=== PATIENT | male | born 1970 | race Caucasian/White ===

== ENCOUNTER → 2018-11-11 | Outpatient (CLI) | payer BC ==
[~2018-11-11] MED LIST: AMLO-150 PO; ATOR20TA37 PO; HYDR25TA6 PO; OMEP-110 PO; TRAM50TA2 PO
[2018-11-11 16:05] LABS: BASOPHILS # (AUTO) 0.03 x10^3/uL (0-0.1); BASOPHILS % (AUTO) 0 % (0-1); EOSINOPHILS # (AUTO) 0.13 x10^3/uL (0-0.4); EOSINOPHILS % (AUTO) 2 % (1-7); LYMPHOCYTES # (AUTO) 1.59 x10^3/uL (1-3.4); LYMPHOCYTES % (AUTO) 25 % (22-44); MD NO; MEAN CORPUSCULAR HEMOGLOBIN 30.2 pg (27.5-34.5); MEAN CORPUSCULAR HGB CONC 34.1 g/dL (33.2-36.2); MEAN CORPUSCULAR VOLUME 88.5 fL (81-97); MEAN PLATELET VOLUME 7.3 fL (7.4-10.4); MONOCYTES # (AUTO) 0.43 x10^3/uL (0.2-0.8); MONOCYTES % (AUTO) 7 % (2-9); NEUTROPHILS # (AUTO) 4.33 x10^3/uL (1.8-6.8); NEUTROPHILS % (AUTO) 67 % (42-75); PLATELET COUNT 214 x10^3/uL (130-400); RED BLOOD COUNT 5.22 x10^6/uL (4.38-5.82); RED CELL DISTRIBUTION WIDTH 13.2 % (9.4-14.8)
[2018-11-11 16:06] LABS: HCT (SEDRATE) 46.3 % (39.2-51.8)
[2018-11-11 16:07] LABS: MICROSCOPIC NOT IND
[2018-11-11 16:10] LABS: CULTURE INDICATED? NO
[2018-11-11 16:13] LABS: INTERNATIONAL NORMALIZED RATIO 0.91 (0.93-1.1); PROTHROMBIN TIME 9.6 Seconds (9.6-11.5)
[2018-11-11 16:14] LABS: ALBUMIN 4.1 g/dL (3.4-5.0); ANION GAP 7 mmol/L (5-15); CALCIUM 9.5 mg/dL (8.5-10.1); CHLORIDE 107 mmol/L (98-107)
[2018-11-11 16:17] LABS: ALANINE AMINOTRANSFERASE 57 U/L (12-78); ALKALINE PHOSPHATASE 86 U/L (45-117); BILIRUBIN,TOTAL 0.9 mg/dL (0.2-1.0); CREATININE 1.14 mg/dL (0.7-1.3)
== END | disposition home or self-care (01) ==
LOC: STAR 15:12
PROVIDERS: ATTEND Orthopaedic Surgery Orthopaedic Surgery of the Spine
DX: Z01.818 Encounter for other preprocedural examination (principal); I45.81 Long QT syndrome; M43.16 Spondylolisthesis, lumbar region; M48.061 Spinal stenosis, lumbar region without neurogenic claudication; M41.86 Other forms of scoliosis, lumbar region
CPT/HCPCS: 36415; 71046; 80053; 81003; 85025; 85610; 85651; 85730; 93005

== ENCOUNTER 2018-11-19 11:07 | Inpatient (IN) | payer BC ==
[~2018-11-19] VITALS: Ht 170.2 cm; Wt 102.0 kg
[~2018-11-19 11:07] MED LIST changes: +BACITRACIN 50,000 UNIT ONE; +BUPIVACAINE/EPI 0.5% 1:200K ONE; +CEFAZOLIN 1,000 MG ONE; +FENTANYL PF 250 MCG/5ML ONE; +GLYCOPYRROLATE 0.2MG/1ML, 5ML ONE; +MIDAZOLAM 1 MG/ML, 2ML ONE; +NEOSTIGMINE 1 MG/ML, 10ML ONE; +PROPOFOL 10 MG/ML, 20ML ONE; +ROCURONIUM 10MG/ML,5ML ONE; +THROMBIN 20,000 UNIT VIAL TP ONE; +TRANEXAMIC ACID 100 MG/ML, 10ML ONE; +VANCOMYCIN 1,000 MG ONE
[2018-11-19] MEDS ORDERED: PROPOFOL 50 ML ONE ×4 (11:08→15:51)
[2018-11-19] MEDS ORDERED: VANCOMYCIN PMX 1GM/200ML 200 ML IV ONE (11:22)
[2018-11-19] MEDS ORDERED: ACETAMINOPHEN 500 MG TABLET PO ONE (11:30)
[2018-11-19] MEDS ORDERED: GABAPENTIN 300 MG CAPSULE PO ONE (11:30)
[2018-11-19] MEDS ORDERED: LACTATED RINGERS 1,000 ML IV SCH (11:52)
[2018-11-19] MEDS ORDERED: ONDANSETRON ODT 8 MG PO PRN (13:00)
[2018-11-19] MEDS ORDERED: hydrALAzine 20 MG/ML, 1ML IV PRN (13:00)
[2018-11-19] MEDS ORDERED: PROMETHAZINE 25 MG SUPP PR PRN (13:00)
[2018-11-19] MEDS ORDERED: FENTANYL PF 100 MCG/2ML IV PRN (13:00)
[2018-11-19] MEDS ORDERED: MORPHINE SULFATE 4 MG/ML, 1ML IVPush PRN (13:00)
[2018-11-19] MEDS ORDERED: MEPERIDINE/PF 25MG/0.5ML IVPush PRN (13:00)
[2018-11-19] MEDS ORDERED: ONDANSETRON 2MG/ML, 2ML IV PRN ×2 (13:00→21:00)
[2018-11-19] MEDS ORDERED: OXYcodone 5 MG/5 ML ORAL.SOL UDC PO PRN (13:00)
[2018-11-19] MEDS ORDERED: PROMETHAZINE 25 MG/ML, 1ML IM PRN ×3 (13:00→21:00)
[2018-11-19] MEDS ORDERED: PROMETHAZINE 25 MG/ML, 1ML IV PRN (13:00)
[2018-11-19] MEDS ORDERED: LABETALOL 5MG/ML, 20ML IV PRN ×2 (13:00→21:00)
[2018-11-19] MEDS ORDERED: PROMETHAZINE 12.5 MG SUPP PR PRN (13:00)
[2018-11-19] MEDS ORDERED: GLYCOPYRROLATE 0.2MG/1ML, 5ML ONE (13:04)
[2018-11-19] MEDS ORDERED: NEOSTIGMINE 1 MG/ML, 10ML ONE (13:04)
[2018-11-19] MEDS ORDERED: PHENYLEPHRINE 10 MG/ML ONE (13:04)
[2018-11-19] MEDS ORDERED: FENTANYL PF 250 MCG/5ML ONE ×2 (13:51→15:19)
[2018-11-19] MEDS ORDERED: OXYcodone 5 MG/5 ML ORAL.SOL UDC ONE (17:20)
[2018-11-19] MEDS ORDERED: HYDROmorphone 2 MG/ML, 1ML ONE (17:20)
[2018-11-19] MEDS ORDERED: FENTANYL PF 100 MCG/2ML ONE (17:20)
[2018-11-19] MEDS: HYDROmorphone 2 MG/ML, 1ML IVPush PRN ×3 (17:24→18:25)
[2018-11-19] MEDS ORDERED: TRANEXAMIC ACID 1,000 MG in SODIUM CHLORIDE 0.9% 100 ML IV ONE (18:00)
[2018-11-19] MEDS ORDERED: PHARMACY MAY ADJ FOR RENAL FX MC PRN (20:00)
[2018-11-19 20:13] VITALS: BP 103/68
[2018-11-19] MEDS ORDERED: SODIUM CHLORIDE 0.9% 1,000ML IV PRN (21:00)
[2018-11-19] MEDS ORDERED: DIPHENHYDRAMINE 50 MG CAPSULE PO PRN (21:00)
[2018-11-19] MEDS: SODIUM CHLORIDE FLUSH 10ML SYR IVF SCH (21:00)
[2018-11-19] MEDS ORDERED: MAGNESIUM HYDROXIDE 8%, 30ML UDC PO PRN (21:00)
[2018-11-19] MEDS ORDERED: DIPHENHYDRAMINE 50 MG/ML, 1ML IM PRN (21:00)
[2018-11-19] MEDS ORDERED: ACETAMINOPHEN 325 MG TABLET PO PRN (21:00)
[2018-11-19] MEDS ORDERED: DIAZEPAM 5 MG/ML, 2ML IV PRN (21:00)
[2018-11-19] MEDS ORDERED: morphine SULFATE 10 MG/ML, 1ML IV PRN (21:00)
[2018-11-19] MEDS ORDERED: DIPHENHYDRAMINE 50 MG/ML, 1ML IVPush PRN (21:00)
[2018-11-19] MEDS ORDERED: ZOLPIDEM 5MG TABLET PO PRN (21:00)
[2018-11-19] MEDS ORDERED: LORazepam 1MG TABLET PO PRN (21:00)
[2018-11-19] MEDS ORDERED: BISACODYL 10 MG SUPP PR PRN (21:00)
[2018-11-19] MEDS ORDERED: KETOROLAC 30 MG/1 ML IV PRN (21:00)
[2018-11-19] MEDS: CEFAZOLIN PMX 1GM/50ML 50 ML IVPB SCH (22:30)
[2018-11-19] MEDS: ATORVASTATIN 20 MG TABLET PO SCH (22:30)
[2018-11-19] MEDS ORDERED: ACETAMINOPHEN 500 MG TABLET PO PRN (22:30)
[2018-11-19] MEDS: DIAZEPAM 5 MG TABLET PO PRN (22:52)
[2018-11-20 00:05] VITALS: BP 131/80
[2018-11-20] MEDS: D5%-0.9% NACL+KCL 20MEQ 1,000 ML IV SCH ×2 (04:33→14:36)
[2018-11-20 04:36] VITALS: BP 153/85
[2018-11-20 05:37] LABS: MEAN CORPUSCULAR HEMOGLOBIN 29.9 pg (27.5-34.5); MEAN CORPUSCULAR HGB CONC 33.9 g/dL (33.2-36.2); MEAN CORPUSCULAR VOLUME 88.3 fL (81-97); MEAN PLATELET VOLUME 7.5 fL (7.4-10.4); PLATELET COUNT 173 x10^3/uL (130-400); RED BLOOD COUNT 4.29 x10^6/uL (4.38-5.82)
[2018-11-20] MEDS: OMEPRAZOLE 20 MG CAPSULE.DR PO SCH (06:08)
[2018-11-20] MEDS: CEFAZOLIN PMX 1GM/50ML 50 ML IVPB SCH (06:08)
[2018-11-20 07:19] LABS: BASOPHILS # (AUTO) 0.02 x10^3/uL (0-0.1); BASOPHILS % (AUTO) 0 % (0-1); EOSINOPHILS % (AUTO) 0 % (1-7); LYMPHOCYTES # (AUTO) 0.42 x10^3/uL (1-3.4); LYMPHOCYTES % (AUTO) 3 % (22-44); MD SCAN; MONOCYTES % (AUTO) 6 % (2-9); NEUTROPHILS % (AUTO) 91 % (42-75)
[2018-11-20] MEDS: SODIUM CHLORIDE FLUSH 10ML SYR IVF SCH ×2 (07:27→21:00)
[2018-11-20] MEDS: SENNA/DOCUSATE TABLET PO SCH (08:06)
[2018-11-20 08:08] VITALS: BP 122/81
[2018-11-20] MEDS: AMLODIPINE 5 MG TABLET PO SCH (08:08)
[2018-11-20] MEDS: HYDROCHLOROTHIAZIDE 25 MG TABLET PO SCH (08:08)
[2018-11-20 13:56] VITALS: BP 111/74
[2018-11-20] MEDS: DEXAMETHASONE 4 MG/ML, 5ML IV PRN ×2 (14:42→21:01)
[2018-11-20] MEDS: DIAZEPAM 5 MG TABLET PO PRN (14:42)
[2018-11-20] MEDS: OXYcodone IR 5MG TABLET PO PRN ×2 (16:59→21:00)
[2018-11-20 19:22] VITALS: BP 121/70
[2018-11-20] MEDS: ATORVASTATIN 20 MG TABLET PO SCH (20:59)
[2018-11-21] MEDS: D5%-0.9% NACL+KCL 20MEQ 1,000 ML IV SCH ×2 (00:30→09:07)
[2018-11-21] MEDS: OXYcodone IR 5MG TABLET PO PRN ×3 (00:58→09:10)
[2018-11-21 01:19] VITALS: BP 117/75
[2018-11-21] MEDS: OMEPRAZOLE 20 MG CAPSULE.DR PO SCH (05:29)
[2018-11-21 06:19] LABS: BASOPHILS # (AUTO) 0.05 x10^3/uL (0-0.1); BASOPHILS % (AUTO) 0 % (0-1); EOSINOPHILS % (AUTO) 0 % (1-7); LYMPHOCYTES # (AUTO) 0.57 x10^3/uL (1-3.4); LYMPHOCYTES % (AUTO) 4 % (22-44); MD NO; MEAN CORPUSCULAR HEMOGLOBIN 30.4 pg (27.5-34.5); MEAN CORPUSCULAR HGB CONC 34.5 g/dL (33.2-36.2); MEAN CORPUSCULAR VOLUME 88.2 fL (81-97); MEAN PLATELET VOLUME 7.7 fL (7.4-10.4); MONOCYTES # (AUTO) 0.64 x10^3/uL (0.2-0.8); MONOCYTES % (AUTO) 4 % (2-9); NEUTROPHILS # (AUTO) 15.12 x10^3/uL (1.8-6.8); NEUTROPHILS % (AUTO) 92 % (42-75); PLATELET COUNT 137 x10^3/uL (130-400); RED BLOOD COUNT 4.29 x10^6/uL (4.38-5.82); RED CELL DISTRIBUTION WIDTH 13.5 % (9.4-14.8)
[2018-11-21 07:07] VITALS: BP 107/68
[2018-11-21] MEDS: AMLODIPINE 5 MG TABLET PO SCH (09:10)
[2018-11-21] MEDS: SENNA/DOCUSATE TABLET PO SCH (09:10)
[2018-11-21] MEDS: HYDROCHLOROTHIAZIDE 25 MG TABLET PO SCH (09:10)
[2018-11-21] MEDS: SODIUM CHLORIDE FLUSH 10ML SYR IVF SCH (09:26)
[2018-11-21] MEDS: DIAZEPAM 5 MG TABLET PO PRN (10:00)
[2018-11-21 14:40] VITALS: BP 126/77
[2018-11-21] MEDS ORDERED: OXYC5TAB3 PO (15:13)
[2018-11-21] MEDS ORDERED: DIAZ5TAB4 PO (15:13)
[2018-11-21] MEDS ORDERED: CEPH-368 PO (15:14)
== END 2018-11-21 15:30 | disposition home or self-care (01) | DRG 455 ==
LOC: ORIP 11:07 → 4NOR 19:00 → DCLOUNGE 11-21 15:17
PROVIDERS: ADMIT Orthopaedic Surgery Orthopaedic Surgery of the Spine; ATTEND Orthopaedic Surgery Orthopaedic Surgery of the Spine
PROC: 0SG0071 Fusion of Lumbar Vertebral Joint with Autologous Tissue Substitute, Posterior Approach, Posterior Column, Open Approach (ICD-10-PCS; 2018-11-19)
PROC: 0QB23ZZ Excision of Right Pelvic Bone, Percutaneous Approach (ICD-10-PCS; 2018-11-19)
PROC: 0ST20ZZ Resection of Lumbar Vertebral Disc, Open Approach (ICD-10-PCS; 2018-11-19)
PROC: 0ST40ZZ Resection of Lumbosacral Disc, Open Approach (ICD-10-PCS; 2018-11-19)
PROC: 01NB0ZZ Release Lumbar Nerve, Open Approach (ICD-10-PCS; 2018-11-19)
PROC: 01NR0ZZ Release Sacral Nerve, Open Approach (ICD-10-PCS; 2018-11-19)
PROC: 0SG30AJ Fusion of Lumbosacral Joint with Interbody Fusion Device, Posterior Approach, Anterior Column, Open Approach (ICD-10-PCS; 2018-11-19)
PROC: 0SG3071 Fusion of Lumbosacral Joint with Autologous Tissue Substitute, Posterior Approach, Posterior Column, Open Approach (ICD-10-PCS; 2018-11-19)
PROC: 4A11X4G Monitoring of Peripheral Nervous Electrical Activity, Intraoperative, External Approach (ICD-10-PCS; 2018-11-19)
PROC: 0SG00AJ Fusion of Lumbar Vertebral Joint with Interbody Fusion Device, Posterior Approach, Anterior Column, Open Approach (ICD-10-PCS; principal; 2018-11-19 13:00)
DX: M48.061 Spinal stenosis, lumbar region without neurogenic claudication (principal); M51.16 Intervertebral disc disorders with radiculopathy, lumbar region; M43.17 Spondylolisthesis, lumbosacral region; Z88.1 Allergy status to other antibiotic agents; Z88.0 Allergy status to penicillin; I10 Essential (primary) hypertension; E78.5 Hyperlipidemia, unspecified; K21.9 Gastro-esophageal reflux disease without esophagitis
CPT/HCPCS: 36415; 72100; J3490; 85025; C1713; G0378; J0690; J1100; J1170; J1885; J2250; J2270; J2704; J2710; J3010; J3370; C1760; C1762; C1763; C9362; J2370; J3480; J7120

== ENCOUNTER 2018-11-25 13:56 | Emergency (ER) | payer BC ==
[~2018-11-25] VITALS: Ht 177.8 cm; Wt 93.9 kg
[~2018-11-25 13:56] MED LIST changes: -BACITRACIN 50,000 UNIT ONE; -BUPIVACAINE/EPI 0.5% 1:200K ONE; -CEFAZOLIN 1,000 MG ONE; +CEPH-368 PO; +DIAZ5TAB4 PO; -FENTANYL PF 250 MCG/5ML ONE; -GLYCOPYRROLATE 0.2MG/1ML, 5ML ONE; -MIDAZOLAM 1 MG/ML, 2ML ONE; -NEOSTIGMINE 1 MG/ML, 10ML ONE; +OXYC5TAB3 PO; -PROPOFOL 10 MG/ML, 20ML ONE; -ROCURONIUM 10MG/ML,5ML ONE; -THROMBIN 20,000 UNIT VIAL TP ONE; -TRANEXAMIC ACID 100 MG/ML, 10ML ONE; -VANCOMYCIN 1,000 MG ONE
--- NOTE | 2018-11-25 14:22 | NUR ---
PT HAD LUMBAR DISCECTOMY RECENTLY. PT NOTICED A PUDDLE OF BLOOD WHEN GETTING READY TO EAT LUNCH. DRESSING NOTED TO HAVE DRESSING IN PLACE WET WITH BLOOD. REMOVED FROM INCISION SITE. STERI STRIPS IN PLACE OVER APPROX 6 INCH LOW BACK INCISION. WELL APPROXIMATED. NO ERYTHEMA. SMALL AMOUNT OF BLOOD AT DISTAL END OF INCISION
[2018-11-25 14:34] LABS: BASOPHILS # (AUTO) 0.01 x10^3/uL (0-0.1); BASOPHILS % (AUTO) 0 % (0-1); EOSINOPHILS # (AUTO) 0.27 x10^3/uL (0-0.4); EOSINOPHILS % (AUTO) 3 % (1-7); LYMPHOCYTES # (AUTO) 1.42 x10^3/uL (1-3.4); LYMPHOCYTES % (AUTO) 18 % (22-44); MD NO; MEAN CORPUSCULAR HEMOGLOBIN 30.2 pg (27.5-34.5); MEAN CORPUSCULAR HGB CONC 34.1 g/dL (33.2-36.2); MEAN CORPUSCULAR VOLUME 88.6 fL (81-97); MEAN PLATELET VOLUME 6.6 fL (7.4-10.4); MONOCYTES # (AUTO) 0.32 x10^3/uL (0.2-0.8); MONOCYTES % (AUTO) 4 % (2-9); NEUTROPHILS # (AUTO) 5.97 x10^3/uL (1.8-6.8); NEUTROPHILS % (AUTO) 75 % (42-75); PLATELET COUNT 300 x10^3/uL (130-400); RED BLOOD COUNT 4.33 x10^6/uL (4.38-5.82); RED CELL DISTRIBUTION WIDTH 13.1 % (9.4-14.8)
[2018-11-25 14:44] LABS: ALANINE AMINOTRANSFERASE 41 U/L (12-78); ALBUMIN 3.1 g/dL (3.4-5.0); ANION GAP 6 mmol/L (5-15); CALCIUM 9.1 mg/dL (8.5-10.1); CHLORIDE 97 mmol/L (98-107)
[2018-11-25 14:47] LABS: ALKALINE PHOSPHATASE 96 U/L (45-117); CREATININE 1.17 mg/dL (0.7-1.3)
--- NOTE | 2018-11-25 15:02 | NUR ---
ULTRASOUND AT BEDSIDE
[2018-11-25 15:32] VITALS: BP 93/49
--- NOTE | 2018-11-25 16:08 | NUR ---
Patient/Caregiver given discharge instructions and they have confirmed that they understand the instructions. Patient ambulatory with steady gait.
== END 2018-11-25 16:10 | disposition home or self-care (01) ==
LOC: ED 16:04
DX: M79.81 Nontraumatic hematoma of soft tissue (principal); I10 Essential (primary) hypertension
CPT/HCPCS: 36415; 76857; 80053; 85025; 99284

== ENCOUNTER 2020-02-03 10:33 | Emergency (ER) | payer BC ==
[~2020-02-03] VITALS: Ht 172.7 cm; Wt 97.4 kg
[2020-02-03] MEDS ORDERED: PROCHLORPERAZINE 5 MG/ML, 2ML IVPush ONE (11:30)
[2020-02-03] MEDS ORDERED: ACETAMINOPHEN 500 MG TABLET PO ONE (11:30)
[2020-02-03] MEDS ORDERED: DIPHENHYDRAMINE 50 MG/ML, 1ML IVPush ONE (11:30)
[2020-02-03] MEDS ORDERED: SODIUM CHLORIDE 0.9% 1,000ML IVBOLUS ONE (11:30)
[2020-02-03] MEDS ORDERED: SODIUM CHLORIDE FLUSH 10ML SYR IVF ONE (11:30)
[2020-02-03 11:51] LABS: BASOPHILS # (AUTO) 0.01 x10^3/uL (0-0.1); BASOPHILS % (AUTO) 0 % (0-1); EOSINOPHILS # (AUTO) 0.02 x10^3/uL (0-0.4); EOSINOPHILS % (AUTO) 0 % (1-7); LYMPHOCYTES # (AUTO) 0.74 x10^3/uL (1-3.4); LYMPHOCYTES % (AUTO) 13 % (22-44); MD NO; MEAN CORPUSCULAR HEMOGLOBIN 29.8 pg (27.5-34.5); MEAN CORPUSCULAR HGB CONC 33.4 g/dL (33.2-36.2); MEAN CORPUSCULAR VOLUME 89.3 fL (81-97); MEAN PLATELET VOLUME 7.3 fL (7.4-10.4); MONOCYTES # (AUTO) 0.28 x10^3/uL (0.2-0.8); MONOCYTES % (AUTO) 5 % (2-9); NEUTROPHILS # (AUTO) 4.55 x10^3/uL (1.8-6.8); NEUTROPHILS % (AUTO) 81 % (42-75); PLATELET COUNT 196 x10^3/uL (130-400); RED BLOOD COUNT 5.47 x10^6/uL (4.38-5.82); RED CELL DISTRIBUTION WIDTH 13.2 % (9.4-14.8)
[2020-02-03 12:02] LABS: ANION GAP 8 mmol/L (5-15); CALCIUM 9.7 mg/dL (8.5-10.1); CHLORIDE 103 mmol/L (98-107)
[2020-02-03] MEDS ORDERED: ACETAMINOPHEN 500 MG TABLET ONE (12:18)
[2020-02-03] MEDS ORDERED: PROCHLORPERAZINE 5 MG/ML, 2ML ONE (12:18)
[2020-02-03] MEDS ORDERED: DIPHENHYDRAMINE 50 MG/ML, 1ML ONE (12:19)
[2020-02-03] MEDS ORDERED: HYDROmorphone 1 MG/ML, 1ML INJ IVPush PRN (12:30)
[2020-02-03] MEDS ORDERED: HYDROmorphone 1 MG/ML, 1ML INJ ONE (12:41)
[2020-02-03] MEDS ORDERED: LIDOCAINE-MPF 1%, 5ML ONE (12:47)
--- NOTE | 2020-02-03 12:50 | NUR ---
task rn note: pt presents to ED with c/o headache at base of head radiating down neck, pt has hx aneurysm in 2012 which did not require surgical intervention, pt states sx today are similar. pt on bp and spo2 monitors, pt medicated per emar for pain. pt a&o, resps even and unlabored, neuro intact. spo2 maintained at 94-95% on room air s/p dilaudid. pt taken to radiology for lumbar puncture at this time, pt placed on oxygen at 1L/min at for transport and procedure.
--- NOTE | 2020-02-03 13:24 | NUR ---
IV ESTABLISHED AND FLUIDS INFUSING PER ORDERS. TO BE MEDICATED FOR LY AT BACK OF HEAD AT THE BASE FOR 2 WEEKS.
--- NOTE | 2020-02-03 14:04 | NUR ---
RETURNED FROM IR/LP. PT LYING FLAT.
[2020-02-03 14:35] LABS: GLUCOSE, CSF 55 mg/dL (40-80); TOTAL PROTEIN,CSF 124 mg/dL (15-45)
--- NOTE | 2020-02-03 15:18 | NUR ---
BREAK RN NOTE: PT RESTING FLAT ON BACK, BP AND SPO2 MONITORS IN PLACE. CALL LIGHT IN REACH. PT REPORTS HEADACHE IMPROVED. EDMD BILLY NOTIFIED PT IS BRADYCARDIC AT RATE 44-50. AWAITING LP RESULTS AND DISPO. REPORT GIVEN BACK TO PRIMARY RN RIA.
--- NOTE | 2020-02-03 16:51 | NUR ---
ASSUMED CARE FOR DISCHARGE ONLY Patient/Caregiver given discharge instructions and they have confirmed that they understand the instructions. Patient ambulatory with steady gait.
[2020-02-03 16:52] VITALS: BP 148/75
== END 2020-02-03 16:54 | disposition home or self-care (01) ==
LOC: ED 14:51
DX: G44.219 Episodic tension-type headache, not intractable (principal); R11.0 Nausea; R05 Cough; M54.2 Cervicalgia; I10 Essential (primary) hypertension; Z88.0 Allergy status to penicillin; Z88.1 Allergy status to other antibiotic agents; Z79.899 Other long term (current) drug therapy
CPT/HCPCS: 36415; 62328; 70450; 80048; 82945; 84157; 85025; 87070; 87205; 89051; 96374; 96375; 99285; J0780; J1170; J1200; J7030; 77002

== ENCOUNTER 2020-12-16 06:02 | Inpatient (IN) | payer BC ==
[~2020-12-16] VITALS: Ht 170.2 cm; Wt 99.1 kg
[~2020-12-16 06:02] MED LIST changes: -OXYC5TAB3 PO; +OXYC5TAB98 PO
[2020-12-16] MEDS ORDERED: IBUP-1223 PO (07:00)
[2020-12-16] MEDS ORDERED: CHLORHEXIDINE 15 ML UDC PO ONE (07:00)
[2020-12-16] MEDS ORDERED: NORCO PO (07:00)
[2020-12-16] MEDS ORDERED: VANCOMYCIN 1,000 MG in SODIUM CHLORIDE 0.9% 100 ML IV ONE (07:00)
[2020-12-16] MEDS ORDERED: METH-639 PO (07:00)
[2020-12-16] MEDS ORDERED: LACTATED RINGERS 1,000 ML IV SCH (07:00)
[2020-12-16] MEDS ORDERED: ALPR-585 PO (07:00)
[2020-12-16] MEDS ORDERED: HYDROmorphone 1 MG/ML, 1ML INJ IVPush PRN (07:30)
[2020-12-16] MEDS ORDERED: LABETALOL 5MG/ML, 20ML IV PRN (07:30)
[2020-12-16] MEDS ORDERED: PROMETHAZINE 25 MG/ML, 1ML IVPush PRN (07:30)
[2020-12-16] MEDS ORDERED: ACETAMINOPHEN 325 MG TABLET PO PRN (07:30)
[2020-12-16] MEDS ORDERED: DIPHENHYDRAMINE 50 MG/ML, 1ML IVPush PRN ×2 (07:30→10:30)
[2020-12-16] MEDS ORDERED: ONDANSETRON 2MG/ML, 2ML IVPush PRN (07:30)
[2020-12-16] MEDS ORDERED: OXYcodone 5 MG/5 ML ORAL.SOL UDC PO PRN (07:30)
[2020-12-16] MEDS ORDERED: hydrALAzine 20 MG/ML, 1ML IV PRN (07:30)
[2020-12-16] MEDS ORDERED: FENTANYL PF 250 MCG/5ML ONE (07:33)
[2020-12-16] MEDS ORDERED: MIDAZOLAM 1 MG/ML, 2ML ONE ×2 (07:33→08:20)
[2020-12-16 07:35] VITALS: BP 158/76
[2020-12-16 07:49] LABS: BASOPHILS % (AUTO) 1 % (0-1); EOSINOPHILS % (AUTO) 1 % (1-7); LYMPHOCYTES % (AUTO) 18 % (22-44); MEAN CORPUSCULAR HEMOGLOBIN 29.7 pg (27.5-34.5); MEAN CORPUSCULAR HGB CONC 33.2 g/dL (33.2-36.2); MEAN PLATELET VOLUME 6.6 fL (7.4-10.4); MONOCYTES % (AUTO) 5 % (2-9); NEUTROPHILS % (AUTO) 75 % (42-75); PLATELET COUNT 247 x10^3/uL (130-400); RED BLOOD COUNT 4.69 x10^6/uL (4.38-5.82)
[2020-12-16] MEDS ORDERED: BUPIVACAINE/PF 0.5% ONE (07:53)
[2020-12-16] MEDS ORDERED: TRANEXAMIC ACID 100 MG/ML, 10ML ONE ×2 (07:53)
[2020-12-16] MEDS ORDERED: THROMBIN 20,000 UNIT VIAL TP ONE (07:54)
[2020-12-16] MEDS ORDERED: EPINEPHRINE 1 MG/ML, 1ML ONE (07:54)
[2020-12-16] MEDS ORDERED: VANCOMYCIN 1,000 MG ONE (07:54)
[2020-12-16] MEDS ORDERED: BACITRACIN 50,000 UNIT ONE (07:54)
[2020-12-16 07:58] LABS: INTERNATIONAL NORMALIZED RATIO 0.96 (0.93-1.1); MD NO; PROTHROMBIN TIME 10.3 Seconds (9.6-11.5)
[2020-12-16 07:59] LABS: ANION GAP 5 mmol/L (5-15); CALCIUM 8.8 mg/dL (8.5-10.1); CHLORIDE 107 mmol/L (98-107)
[2020-12-16 08:00] LABS: CREATININE 0.78 mg/dL (0.7-1.3)
[2020-12-16 08:23] LABS: HCT (SEDRATE) 42.1 % (39.2-51.8)
[2020-12-16] MEDS ORDERED: HYDROmorphone 1 MG/ML, 1ML INJ ONE (09:19)
[2020-12-16] MEDS ORDERED: DEXAMETHASONE 4 MG/ML, 1ML ONE (09:59)
[2020-12-16] MEDS ORDERED: GLYCOPYRROLATE 0.2MG/1ML, 5ML ONE (09:59)
[2020-12-16] MEDS ORDERED: ONDANSETRON 2MG/ML, 2ML ONE (09:59)
[2020-12-16] MEDS ORDERED: PROPOFOL 10 MG/ML, 20ML ONE (09:59)
[2020-12-16] MEDS ORDERED: ROCURONIUM 10MG/ML,5ML ONE (09:59)
[2020-12-16] MEDS ORDERED: SUCCINYLCHOLINE 20 MG/ML, 10ML ONE (09:59)
[2020-12-16] MEDS ORDERED: NEOSTIGMINE 1 MG/ML, 10ML ONE (09:59)
[2020-12-16] MEDS ORDERED: CEFAZOLIN 1,000 MG ONE (09:59)
[2020-12-16] MEDS ORDERED: morphine SULFATE 10 MG/ML, 1ML IVPush PRN (10:30)
[2020-12-16] MEDS ORDERED: ACETAMINOPHEN 500 MG TABLET PO PRN (10:30)
[2020-12-16] MEDS ORDERED: DIPHENHYDRAMINE 50 MG/ML, 1ML IM PRN (10:30)
[2020-12-16] MEDS ORDERED: DIPHENHYDRAMINE 50 MG CAPSULE PO PRN (10:30)
[2020-12-16] MEDS ORDERED: ONDANSETRON 2MG/ML, 2ML IV PRN (10:30)
[2020-12-16] MEDS ORDERED: METHOCARBAMOL 1,000 MG in DEXTROSE 5% 100 ML IV PRN (10:30)
[2020-12-16] MEDS: METHOCARBAMOL 1,000 MG in DEXTROSE 5% 100 ML IV SCH ×2 (10:30→18:33)
[2020-12-16] MEDS ORDERED: BISACODYL 10 MG SUPP PR PRN (10:30)
[2020-12-16] MEDS ORDERED: DIAZEPAM 5 MG TABLET PO PRN (10:30)
[2020-12-16] MEDS ORDERED: MAGNESIUM HYDROXIDE 8%, 30ML UDC PO PRN (10:30)
[2020-12-16] MEDS ORDERED: LABETALOL 5MG/ML, 20ML IVPush PRN (10:30)
[2020-12-16] MEDS ORDERED: SODIUM CHLORIDE 0.9% 1,000 ML IV PRN (10:30)
[2020-12-16] MEDS ORDERED: HYDROcodone/APAP 5/325 TABLET PO PRN (10:30)
[2020-12-16] MEDS ORDERED: SENNA/DOCUSATE TABLET PO PRN (10:30)
[2020-12-16] MEDS ORDERED: LORazepam 1MG TABLET PO PRN (10:30)
[2020-12-16] MEDS ORDERED: HYDROmorphone 2MG TABLET PO PRN (10:30)
[2020-12-16] MEDS ORDERED: PROMETHAZINE 25 MG/ML, 1ML IM PRN (10:30)
[2020-12-16] MEDS ORDERED: FENTANYL PF 100 MCG/2ML ONE (10:31)
[2020-12-16] MEDS ORDERED: OXYcodone 5 MG/5 ML ORAL.SOL UDC ONE (10:31)
[2020-12-16] MEDS: FENTANYL PF 100 MCG/2ML IV PRN ×3 (10:35→11:02)
[2020-12-16] MEDS ORDERED: KETOROLAC 30 MG/1 ML ONE (10:38)
[2020-12-16] MEDS: KETOROLAC 30 MG/1 ML IVPush PRN (10:40)
[2020-12-16] MEDS ORDERED: DEXAMETHASONE 4 MG/ML, 1ML IVPush PRN (11:00)
[2020-12-16] MEDS ORDERED: KETOROLAC 30 MG/1 ML IVPush ONE (11:00)
[2020-12-16] MEDS ORDERED: DIAZEPAM 5 MG/ML, 2ML ONE (11:16)
[2020-12-16] MEDS ORDERED: DIAZEPAM 5 MG/ML, 2ML IV ONE (12:00)
[2020-12-16] MEDS: OXYcodone IR 5MG TABLET PO PRN ×3 (14:15→22:55)
[2020-12-16] MEDS: NS + 20MEQ KCL 1,000 ML IV SCH (16:11)
[2020-12-16 16:22] VITALS: BP 119/68
[2020-12-16] MEDS: DICLOFENAC SODIUM 75 MG TABLET.DR PO SCH (16:22)
[2020-12-16] MEDS: CEFAZOLIN PMX 1GM/50ML 50 ML IVPB SCH (17:43)
[2020-12-16 19:09] VITALS: BP 108/70
[2020-12-16] MEDS ORDERED: ATORVASTATIN 20 MG TABLET PO SCH (21:00)
[2020-12-16] MEDS ORDERED: ZOLPIDEM 5MG TABLET PO PRN (21:00)
[2020-12-17 00:12] VITALS: BP 119/72
[2020-12-17] MEDS: CEFAZOLIN PMX 1GM/50ML 50 ML IVPB SCH (01:52)
[2020-12-17] MEDS: METHOCARBAMOL 1,000 MG in DEXTROSE 5% 100 ML IV SCH ×2 (02:29→10:28)
[2020-12-17] MEDS: OXYcodone IR 5MG TABLET PO PRN ×4 (02:33→12:34)
[2020-12-17] MEDS: DICLOFENAC SODIUM 75 MG TABLET.DR PO SCH (04:31)
[2020-12-17] MEDS: NS + 20MEQ KCL 1,000 ML IV SCH (04:31)
[2020-12-17 04:39] VITALS: BP 108/65
[2020-12-17 07:17] VITALS: BP 122/73
[2020-12-17] MEDS: KETOROLAC 30 MG/1 ML IVPush PRN (08:35)
[2020-12-17] MEDS ORDERED: AMLODIPINE 5 MG TABLET PO SCH ×2 (09:00)
[2020-12-17] MEDS ORDERED: HYDROCHLOROTHIAZIDE 25 MG TABLET PO SCH ×2 (09:00)
[2020-12-17] MEDS ORDERED: OXYC10TA6 PO (12:40)
[2020-12-17] MEDS ORDERED: METH-640 PO (12:41)
[2020-12-17] MEDS ORDERED: CEPH750C9 PO (12:42)
== END 2020-12-17 13:06 | disposition home or self-care (01) | DRG 497 ==
LOC: OUT 06:02 → 4NE 10:32 → OUT 12:43 → DCLOUNGE 12-17 12:54
PROVIDERS: ADMIT Orthopaedic Surgery Orthopaedic Surgery of the Spine; ATTEND Orthopaedic Surgery Orthopaedic Surgery of the Spine
PROC: 0QP004Z Removal of Internal Fixation Device from Lumbar Vertebra, Open Approach (ICD-10-PCS; principal; 2020-12-16 08:00)
DX: T84.84XA Pain due to internal orthopedic prosthetic devices, implants and grafts, initial encounter (principal); Y83.1 Surgical operation with implant of artificial internal device as the cause of abnormal reaction of the patient, or of later complication, without mention of misadventure at the time of the procedure; Z20.822 Contact with and (suspected) exposure to COVID-19
CPT/HCPCS: 36415; 72100; S0020; 71045; 80048; 83036; 85014; 85025; 85610; 85651; 85730; 87635; 93005; G0378; J0171; J0690; J1100; J1170; J1885; J2250; J2405; J2704; J2710; J3010; J3370; J3480; C1762; C9362; J0330; J2800; J7120